=== PATIENT | female | born 1940 ===

== ENCOUNTER 2023-08-02 16:50 | Outpatient (REF) | payer MEDICARE, SELFPAY ==
--- NOTE | 2023-08-02 13:20 | ENDOMET_PTH ---
PATIENT: Ayan Medellin LOC: [facility] U#:[id number] AGE/SX: 82/F ROOM: RE08/02/[address]: Michelle Castaneda DO : 1940 BED: DIS: 08/02/2023 SPEC #: [id number] RECD: 08/02/23 16:56 STATUS: SIMRAN REQ #: [id number] KARLA: 08/02/23 13:[address]: Michelle Castaneda DEPT: Surgical Specimen RECD BY: Amberly Purcell Tissues: 1 - ENDOMETRIUM BX/SERGIOETTE Procedures: GROSS AND MICRO LEVEL 4 Comments: [id number]
== END 2023-08-02 16:51 | disposition home or self-care (01) ==
LOC: LBN 16:50
PROVIDERS: Visit Provider Obstetrics & Gynecology
DX: N95.0 Postmenopausal bleeding (principal); R93.89 Abnormal findings on diagnostic imaging of other specified body structures; D25.9 Leiomyoma of uterus, unspecified
CPT/HCPCS: 88305